=== PATIENT | male | born 1955 | race Caucasian/White ===

== ENCOUNTER 2025-03-11 06:14 | Inpatient (IN) | payer MEDICARE, OTHER ==
[~2025-03-11] VITALS: Ht 152.4 cm; Wt 74.4 kg
[2025-03-11] MEDS ORDERED: LIDOCAINE 2% JEL UROJET 10 ML MM ONE (07:03)
[2025-03-11] MEDS ORDERED: OXYMETAZOLINE HCL NASAL SPRAY 30 ML BOTTLE NS ONE ×2 (07:04→07:07)
[2025-03-11] MEDS ORDERED: MIDAZOLAM HCL 2 MG/2ML VIAL ONE (07:04)
[2025-03-11] MEDS ORDERED: FENTANYL PF 100MCG/2ML AMPUL ONE (07:04)
[2025-03-11] MEDS ORDERED: ROCURONIUM BROMIDE 50 MG/5 ML ONE (07:05)
[2025-03-11] MEDS ORDERED: LIDOCAINE 2%-EPI 1:100,000 30 ML VIAL ONE (07:06)
[2025-03-11] MEDS ORDERED: ANESTHESIA TRAY IN PYXIS 1 EA TRAY MC ONE (07:06)
[2025-03-11] MEDS ORDERED: VANCOMYCIN 1 GM VIAL ONE (07:07)
[2025-03-11] MEDS ORDERED: dexaMETHasone SOD PHOSPHATE 2 ML ONE (07:07)
[2025-03-11] MEDS ORDERED: LABETALOL HCL IV 100MG VIAL ONE (08:13)
[2025-03-11 11:00] VITALS: BP 149/74; TEMP 97.6; O2SAT 96
[2025-03-11] MEDS ORDERED: ONDANSETRON HCL/PF 4 MG/2 ML VIAL IV PRN (12:00)
[2025-03-11] MEDS: IV NS 0.9% 1,000 ML IV PRN (13:15)
[2025-03-11] MEDS ORDERED: OLME5TAB3 PO (13:57)
[2025-03-11] MEDS ORDERED: ROSU5TAB13 PO (13:57)
[2025-03-11 20:00] VITALS: BP 140/76; TEMP 97.7; O2SAT 97
[2025-03-11] MEDS: VANCOMYCIN 1 GM in IV D5W 250ml IV SCH (20:00)
[2025-03-11] MEDS: HYDROMORPHONE 1 MG/1 ML DISP.SYRIN IV PRN (22:22)
[2025-03-12] MEDS: ACETAMINOPHEN 325 MG TABLET PO PRN (04:44)
== END 2025-03-12 12:00 | disposition home or self-care (01) | DRG 142 ==
LOC: DS 06:14 → MED 10:53
PROC: 0N5R0ZZ Destruction of Maxilla, Open Approach (ICD-10-PCS; principal; 2025-03-11 07:30)
PROC: 0N5T0ZZ Destruction of Right Mandible, Open Approach (ICD-10-PCS; principal; 2025-03-11 07:30)
PROC: 09UR07Z Supplement Left Maxillary Sinus with Autologous Tissue Substitute, Open Approach (ICD-10-PCS; principal; 2025-03-11 07:30)
PROC: 09UQ07Z Supplement Right Maxillary Sinus with Autologous Tissue Substitute, Open Approach (ICD-10-PCS; principal; 2025-03-11 07:30)
PROC: 0NSR04Z Reposition Maxilla with Internal Fixation Device, Open Approach (ICD-10-PCS; principal; 2025-03-11 07:30)
PROC: 0N5V0ZZ Destruction of Left Mandible, Open Approach (ICD-10-PCS; principal; 2025-03-11 07:30)
PROC: 0NUV07Z Supplement Left Mandible with Autologous Tissue Substitute, Open Approach (ICD-10-PCS; principal; 2025-03-11 07:30)
PROC: 0NUR07Z Supplement Maxilla with Autologous Tissue Substitute, Open Approach (ICD-10-PCS; principal; 2025-03-11 07:30)
PROC: 0NSV04Z Reposition Left Mandible with Internal Fixation Device, Open Approach (ICD-10-PCS; principal; 2025-03-11 07:30)
PROC: 0NST04Z Reposition Right Mandible with Internal Fixation Device, Open Approach (ICD-10-PCS; principal; 2025-03-11 07:30)
PROC: 0NUT07Z Supplement Right Mandible with Autologous Tissue Substitute, Open Approach (ICD-10-PCS; principal; 2025-03-11 07:30)
DX: S02.40CA Maxillary fracture, right side, initial encounter for closed fracture (principal); S02.609A Fracture of mandible, unspecified, initial encounter for closed fracture; S02.40DA Maxillary fracture, left side, initial encounter for closed fracture; X58.XXXA Exposure to other specified factors, initial encounter; Y93.9 Activity, unspecified; Y92.89 Other specified places as the place of occurrence of the external cause; M27.2 Inflammatory conditions of jaws; D16.4 Benign neoplasm of bones of skull and face; D16.5 Benign neoplasm of lower jaw bone; I10 Essential (primary) hypertension; Z85.46 Personal history of malignant neoplasm of prostate; Z87.891 Personal history of nicotine dependence
CPT/HCPCS: 88305-TC; 88311-TC; A4223; G0378; J1100; J1171; J1885; J2250; J2405; J2704; J2765; J3010; J3370; J3490; J7030; J7060

== ENCOUNTER 2025-07-01 10:29 | Outpatient (CLI) | payer MEDICARE, OTHER ==
[~2025-07-01 10:29] MED LIST: OLME5TAB3 PO; ROSU5TAB13 PO
[2025-07-01 11:12] LABS: PLATELET COUNT (AUTO) 270 K/uL (150-450); RED BLOOD CELL COUNT(AUTO) 4.96 MIL/uL (4.5-6.0); RED CELL DISTRIBUTION WIDTH 12.5 % (11.5-15.0); WHITE BLOOD COUNT (AUTO) 4.0 K/uL (4.3-11.0)
[2025-07-01 11:26] LABS: INR 1.17 (0.91-1.10)
[2025-07-01 11:32] LABS: ASPARTATE AMINOTRANSFERASE 36.0 U/L (15-37); CALCIUM, SERUM 9.3 mg/dL (8.5-10.1); CREATININE 1.4 mg/dL (0.6-1.3); SODIUM SERUM 143.0 mmol/L (136-145); TOTAL PROTEIN, SERUM 7.5 g/dL (6.4-8.2); UREA NITROGEN, BLOOD 33.0 mg/dL (7-18)
== END 2025-07-01 23:59 | disposition home or self-care (01) ==
LOC: LAB 10:29
PROVIDERS: ATTEND Internal Medicine Interventional Cardiology
DX: Z01.812 Encounter for preprocedural laboratory examination (principal); I10 Essential (primary) hypertension; E11.9 Type 2 diabetes mellitus without complications; D68.9 Coagulation defect, unspecified
CPT/HCPCS: 36415; 80053-TC; 85025-TC; 85730-TC

== ENCOUNTER 2025-07-15 07:54 | Inpatient (IN) | payer MEDICARE, OTHER ==
[~2025-07-15] VITALS: Ht 177.8 cm; Wt 74.8 kg
[2025-07-15] MEDS ORDERED: dexaMETHasone SOD PHOSPHATE 2 ML ONE (08:55)
[2025-07-15] MEDS ORDERED: LIDOCAINE 2%-EPI 1:100,000 30 ML VIAL ONE (08:55)
[2025-07-15] MEDS ORDERED: OXYMETAZOLINE HCL NASAL SPRAY 30 ML BOTTLE NS ONE (08:55)
[2025-07-15] MEDS ORDERED: VANCOMYCIN 1 GM VIAL ONE (08:55)
[2025-07-15] MEDS ORDERED: FENTANYL PF 100MCG/2ML AMPUL ONE (13:09)
[2025-07-15] MEDS: FENTANYL PF 100MCG/2ML AMPUL IV PRN (13:10)
[2025-07-15] MEDS ORDERED: ACETAMINOPHEN 325 MG TABLET PO PRN ×2 (14:00→16:00)
[2025-07-15] MEDS ORDERED: ONDANSETRON HCL/PF 4 MG/2 ML VIAL IVP PRN ×2 (14:00→16:00)
[2025-07-15 15:00] VITALS: BP 160/71; TEMP 97.7; O2SAT 97
[2025-07-15] MEDS: IV NS 0.9% 1,000 ML IV PRN (15:43)
[2025-07-15] MEDS: HYDROMORPHONE INJ 2 MG/ML DISP.SYRIN IV PRN (15:43)
[2025-07-15] MEDS ORDERED: MAGNESIUM HYDROXIDE 30 ML UDC PO PRN (16:00)
[2025-07-15] MEDS ORDERED: MAG HYDROX/AL HYDROX/SIMETH 30 ML UDC PO PRN (16:00)
[2025-07-15 20:00] VITALS: BP 127/68; TEMP 97.3; O2SAT 96
[2025-07-15] MEDS: VANCOMYCIN 1 GM in IV D5W 250ml IV SCH (22:26)
[2025-07-16 08:00] VITALS: BP 136/65; TEMP 97.7; O2SAT 98
== END 2025-07-16 11:00 | disposition home or self-care (01) | DRG 908 ==
LOC: DS 07:54 → MED 13:24
PROC: 0NSR0ZZ Reposition Maxilla, Open Approach (ICD-10-PCS; 2025-07-15)
PROC: 0N5T0ZZ Destruction of Right Mandible, Open Approach (ICD-10-PCS; 2025-07-15)
PROC: 0N5R0ZZ Destruction of Maxilla, Open Approach (ICD-10-PCS; 2025-07-15)
PROC: 0NPW07Z Removal of Autologous Tissue Substitute from Facial Bone, Open Approach (ICD-10-PCS; 2025-07-15)
PROC: 0NPW04Z Removal of Internal Fixation Device from Facial Bone, Open Approach (ICD-10-PCS; 2025-07-15)
PROC: 0NUR07Z Supplement Maxilla with Autologous Tissue Substitute, Open Approach (ICD-10-PCS; 2025-07-15)
PROC: 0N5V0ZZ Destruction of Left Mandible, Open Approach (ICD-10-PCS; principal; 2025-07-15 10:00)
DX: T86.831 Bone graft failure (principal); S02.40CK Maxillary fracture, right side, subsequent encounter for fracture with nonunion; S02.609A Fracture of mandible, unspecified, initial encounter for closed fracture; T84.69XA Infection and inflammatory reaction due to internal fixation device of other site, initial encounter; S02.40DK Maxillary fracture, left side, subsequent encounter for fracture with nonunion; M27.2 Inflammatory conditions of jaws; I10 Essential (primary) hypertension; E78.5 Hyperlipidemia, unspecified; Y92.009 Unspecified place in unspecified non-institutional (private) residence as the place of occurrence of the external cause; Y83.2 Surgical operation with anastomosis, bypass or graft as the cause of abnormal reaction of the patient, or of later complication, without mention of misadventure at the time of the procedure; Y83.8 Other surgical procedures as the cause of abnormal reaction of the patient, or of later complication, without mention of misadventure at the time of the procedure; X58.XXXA Exposure to other specified factors, initial encounter; Y92.9 Unspecified place or not applicable
CPT/HCPCS: 88300-TC; 88305-TC; 88311-TC; A4217; A4338; G0378; J0461; J0690; J1100; J1171; J2704; J3010; J3373; J3490; J7030; J7060